=== PATIENT | male | born 1965 | race Caucasian/White ===

== ENCOUNTER 2017-11-12 06:18 | Observation (INO) | payer OTHER ==
[2017-11-12] MEDS ORDERED: DOCUSATE SODIUM 100 MG CAP PO (07:30)
[2017-11-12] MEDS ORDERED: LORAZEPAM 2 MG INJ IV (07:30)
[2017-11-12] MEDS ORDERED: ACETAMINOPHEN 325 MG TAB PO (07:30)
[2017-11-12] MEDS ORDERED: NACL 0.9% 3 ML SYG IV (07:30)
[2017-11-12] MEDS: SOD CHLORIDE 0.9% 1,000 ML IV ×3 (09:00→23:26)
[2017-11-12 10:06] LABS: ADD MAN DIFF? NO
[2017-11-12 10:09] LABS: BASOPHIL # 0.1 10^3/ul (0.0-0.1); BASOPHILS % 1.2 % (0.0-2.0); EOSINOPHILS # 0.2 10^3/ul (0.0-0.5); EOSINOPHILS % 4.3 % (0.0-7.0); HEMATOCRIT 36.4 % (42.0-52.0); HEMOGLOBIN 12.6 g/dl (14.0-18.0); LYMPHOCYTES # 1.4 10^3/ul (0.8-2.9); LYMPHOCYTES % 27.5 % (15.0-51.0); MEAN CORPUSCULAR HGB CONC 34.6 g/dl (32.0-37.0); MEAN CORPUSCULAR VOLUME 92.4 fl (82.0-101.0); MEAN PLATELET VOLUME 9.7 fl (7.4-10.4); MONOCYTE # 0.6 10^3/ul (0.3-0.9); MONOCYTES % 11.6 % (0.0-11.0); NEUTROPHIL # 2.9 10^3/ul (1.6-7.5); NEUTROPHILS % 55.2 % (39.0-77.0); PLATELET COUNT 166 10^3/UL (140-415); RED BLOOD COUNT 3.94 10^6/ul (4.70-6.10); RED CELL DISTRIBUTION WIDTH 11.9 % (11.5-14.5)
[2017-11-12 10:09] LABS: WHITE BLOOD COUNT 5.2 10^3/ul (4.8-10.8)
[2017-11-12 10:34] LABS: ANION GAP 11 (8-16); BLOOD UREA NITROGEN 18 mg/dl (7-20); CALCIUM 8.8 mg/dl (8.4-10.2); CARBON DIOXIDE 26 mmol/L (21-31); CHLORIDE 106 mmol/L (97-110); CREATININE 1.05 mg/dl (0.61-1.24); GLUCOSE 91 mg/dl (70-220); POTASSIUM 4.3 mmol/L (3.5-5.1); SODIUM 139 mmol/L (135-144)
[2017-11-12 10:37] LABS: CREATINE KINASE 215 IU/L (23-200)
[2017-11-12 10:46] LABS: TROPONIN-I < 0.012 ng/ml (0.000-0.120)
[2017-11-13] MEDS: LEVETIRACETAM 500 MG TAB PO (08:57)
== END 2017-11-13 12:06 | disposition home or self-care (01) ==
LOC: TEL 06:18
DX: S06.309S Unspecified focal traumatic brain injury with loss of consciousness of unspecified duration, sequela (principal); G93.89 Other specified disorders of brain; X58.XXXS Exposure to other specified factors, sequela
CPT/HCPCS: 70551; 80048; 82550; 84484; 85025; 95819; G0378